=== PATIENT | female | born 1935 | race Two or more races ===

== ENCOUNTER 2017-05-14 06:59 | Outpatient (CLI) | payer OTHER ==
[~2017-05-14 06:59] MED LIST: BENTYL; CALCIUM + D T1 UDTAB; COZAAR50 MG; LEVSIN0.125 MG; NEURIN SL; PARAFON FORTE500 MG; PROLIA60 MG/1 ML; RAYOS5 MG; RECLAST 55 MG/100 M; SYNTHROID50 MCG
[2017-05-26] MEDS ORDERED: PERCOCET 5-3251 EACH PO (00:30)
== END 2017-05-14 07:58 | disposition home or self-care (01) ==
LOC: SONOGRAMA 06:59
DX: E06.3 Autoimmune thyroiditis (principal)

== ENCOUNTER 2017-09-24 12:02 | Outpatient (CLI) | payer OTHER ==
[~2017-09-24 12:02] MED LIST changes: +PERCOCET 5-3251 EACH PO
== END 2017-09-24 12:30 | disposition home or self-care (01) ==
LOC: NUCLEAR 12:02
DX: M81.0 Age-related osteoporosis without current pathological fracture (principal)

== ENCOUNTER 2018-06-22 13:49 | Outpatient (CLI) | payer OTHER | END 2018-06-22 17:41 | disposition home or self-care (01) | LOC: LAB 13:49 | DX: N20.0 Calculus of kidney (principal) ==

== ENCOUNTER 2018-07-04 14:12 | Emergency (ER) | payer OTHER ==
[~2018-07-04] VITALS: Ht 154.9 cm; Wt 47.6 kg
[2018-07-04] MEDS ORDERED: LEVSIN/SL0.125 MG PO (14:46)
[2018-07-04] MEDS ORDERED: EC-NAPROSYN375 MG PO (14:46)
== END 2018-07-04 16:42 | disposition home or self-care (01) ==
LOC: ER 14:12
DX: I16.0 Hypertensive urgency (principal); I10 Essential (primary) hypertension

== ENCOUNTER 2018-07-19 09:33 | Outpatient (CLI) | payer OTHER ==
[~2018-07-19 09:33] MED LIST changes: +EC-NAPROSYN375 MG PO; +LEVSIN/SL0.125 MG PO
== END 2018-07-19 09:48 | disposition home or self-care (01) ==
LOC: TOM 09:33
DX: K57.32 Diverticulitis of large intestine without perforation or abscess without bleeding (principal); R10.84 Generalized abdominal pain
CPT/HCPCS: 74177; Q9965

== ENCOUNTER 2018-10-21 12:37 | Emergency (ER) | payer OTHER ==
[~2018-10-21] VITALS: Ht 157.5 cm; Wt 52.2 kg
== END 2018-10-21 16:08 | disposition home or self-care (01) ==
LOC: ER 12:37
DX: M54.5 Low back pain (principal)

== ENCOUNTER 2019-01-05 10:44 | Emergency (ER) | payer OTHER ==
[~2019-01-05] VITALS: Ht 152.4 cm; Wt 49.9 kg
[2019-01-05] MEDS ORDERED: LEVSIN/SL0.125 MG (11:02)
[2019-01-05] MEDS ORDERED: ATENOLOL25 MG (11:02)
[2019-01-05] MEDS ORDERED: ABANEU-SL TABL1 EACH (11:04)
[2019-01-05] MEDS ORDERED: VITAMIN D250 MCG (11:04)
== END 2019-01-05 14:28 | disposition designated cancer center or children's hospital (05) ==
LOC: ER 10:44 → CPU-OBS 10:46 → ER 10:46
DX: I21.4 Non-ST elevation (NSTEMI) myocardial infarction (principal); I10 Essential (primary) hypertension; R07.89 Other chest pain

== ENCOUNTER → 2019-04-21 | Outpatient (CLI) | payer OTHER ==
[~2019-04-21] MED LIST changes: +ABANEU-SL TABL1 EACH; +ATENOLOL25 MG; +LEVSIN/SL0.125 MG; +VITAMIN D250 MCG
== END | disposition home or self-care (01) ==
LOC: RAD 10:49
DX: R07.89 Other chest pain (principal)

== ENCOUNTER 2022-08-18 10:33 | Outpatient (CLI) | payer OTHER | END 2022-08-18 10:35 | disposition home or self-care (01) | LOC: RAD 10:33 | PROVIDERS: ATTEND Internal Medicine Geriatric Medicine | DX: S39.82XA Other specified injuries of lower back, initial encounter (principal); S79.812A Other specified injuries of left hip, initial encounter; S79.811A Other specified injuries of right hip, initial encounter ==

== ENCOUNTER 2022-08-28 09:23 | Outpatient (CLI) | payer OTHER | END 2022-08-28 09:34 | disposition home or self-care (01) | LOC: MAMO-SONO 09:23 | PROVIDERS: ATTEND Internal Medicine Hematology & Oncology | DX: Z12.31 Encounter for screening mammogram for malignant neoplasm of breast (principal); N63.0 Unspecified lump in unspecified breast; N64.4 Mastodynia; K75.9 Inflammatory liver disease, unspecified; K76.0 Fatty (change of) liver, not elsewhere classified ==

== ENCOUNTER 2022-11-26 10:10 | Outpatient (CLI) | payer OTHER | END 2022-11-26 13:12 | disposition home or self-care (01) | LOC: SONOGRAMA 10:10 | PROVIDERS: ATTEND Radiology Diagnostic Radiology | DX: R22.0 Localized swelling, mass and lump, head (principal) ==

== ENCOUNTER 2022-12-18 08:03 | Outpatient (CLI) | payer OTHER | END 2022-12-18 08:15 | disposition home or self-care (01) | LOC: TOM 08:03 | PROVIDERS: ATTEND Internal Medicine Geriatric Medicine | DX: K11.8 Other diseases of salivary glands (principal); K11.9 Disease of salivary gland, unspecified; E04.1 Nontoxic single thyroid nodule ==